=== PATIENT | male | born 1990 ===

== ENCOUNTER → 2019-09-03 | Outpatient (CLI) | payer OTHER ==
[~2019-09-03] MED LIST: MULT-245 PO; OMEG1CAP27 PO
--- NOTE | 2019-09-03 09:38 | PAIN ---
DATE OF SERVICE: 09/03/2019 INITIAL CONSULTATION FOR PAIN CLINIC CHIEF COMPLAINT: Low back and right lower extremity pain. HISTORY OF PRESENT ILLNESS: This is a 29-year-old male who presents with history of pain in the low back, right lower extremity for about 10 years, status post injury while doing physical training in [employer] duty [employer]. The patient reports the pain has been on and off over the years, but never gone, radiating to posterior gluteus, posterior right leg, posterior thigh, posterior calf and with tingling and numbness in the right calf, especially into the foot and the lateral toes, but not as much in the great toe. The patient reports weakness in the right compared to the left, especially with any activities, even walking for more than about 10 minutes. The patient reports no loss of motor function, but significant fatigability with the right leg, aching in the right thigh anteriorly as well. The patient reports changes during the day, worse with activity, standing, walking, changing positions with tingling and numbness radiating to the right leg, aching in quality in the back as well. The patient reports it awakens him from sleep at least once or twice a night. It does not affect his bowel or bladder control, can affect his ability to walk, but only for extended distances greater than 10-20 minutes of walking. The patient has had previous epidural injections in 2016 with good results; trigger point injections; physical therapy with mild results at that time. this was back in 2009 and 2018; chiropractic treatment in 2013; and exercises he is currently doing on his own as well as stretching. The patient had taken Neurontin, which was not significantly helpful. He gets [id number] Tylenol he can take as well, which does help, but only about 10%. The patient rates his disability rating 0-10, 10 being the worst, is a 3 with recreation, 2 with social activity, 4 with occupational activities, 1 with self-care activities and 5 with life support activities, especially sleeping. The patient did have MRI scan dated 11/05/2016 showing disk extrusion at L5-S1 with neural effacement and right paracentral disk extrusion extending posteriorly to the upper portion of the S1 vertebral segment with some mild disk desiccation at L3-4 as well. PAST MEDICAL HISTORY: Significant for elevated liver enzymes and ringing in the ears. PREVIOUS SURGERIES: Include ear tubes at age 5 and wisdom teeth extraction and LASIK procedure in 2010. CURRENT MEDICATIONS: Include only [id number] Tylenol currently. ALLERGIES: The patient has no known drug allergies. FAMILY HISTORY: Significant for cancers. SOCIAL HISTORY: The patient does not drink alcohol, does not smoke, does not use any illegal, illicit or recreational drugs. Single. He is ex-, in custody currently at [place], [place]. REVIEW OF SYSTEMS: The patient's review of systems is positive for those items mentioned in history of present illness. All systems reviewed and otherwise negative. It is complete, full and well documented on the patient's chart. PHYSICAL EXAMINATION: VITAL SIGNS: The patient's blood pressure is 147/97, pulse 79, respirations 16, temperature 98.3 degrees Fahrenheit, height is 5 feet 10 inches, and weight is 212 pounds. GENERAL: The patient is awake, alert, oriented, appropriate, very pleasant demeanor. HEENT: Shows normocephalic, atraumatic. Extraocular movements are intact and symmetrical. Oral cavity shows mucous membranes moist and pink. Dentition is intact. NECK: Shows anterior throat supple without palpable lymphadenopathy noted. Swallow reflex symmetrical. CHEST: Shows normal on inspection. Breath sounds are clear to auscultation bilaterally. HEART: Shows S1, S2 clear. No murmurs auscultated. ABDOMEN: Soft, nontender, nondistended. No palpable organomegaly is noted. No rebound or guarding demonstrated. BACK: Shows spine grossly in the midline. Normal-appearing thoracic kyphosis and some slight flattening of lumbar lordotic curvature. Lumbar paraspinous muscle shows symmetrical on inspection, on palpation shows some moderate tenderness diffusely, but only very diffusely in the low lumbar distribution. Good rotational motion both laterally greater than 10 degrees right and left as well as extension greater than 10 degrees, forward flexion 45 degrees without increase in pain, no tenderness over the spinous processes, sacrum or sacroiliac regions with palpation. EXTREMITIES: The patient's lower extremities show deep tendon reflexes at 2+ in the patellar, 1+ tendo-calcaneus tendons. Motor exam is approximately 4 on a scale of 5 in the right ankle, but 5/5 with right quadriceps and hamstring flexion. Left side is 5/5 throughout. Peripheral pulses are 1+ posterior tibia. No peripheral edema is noted bilaterally. Straight leg raise noted to be positive on the right about 45 degrees, decreased with knee flexion, left side is negative. Gaenslen's and Hay maneuvers are negative bilaterally as well. The patient is able to stand, stand on his toes without significant difficulty or loss of balance. The patient's gait is not well evaluated as the patient is in ankle restraints. The patient is not using any assistive devices, however, such as canes or walkers to ambulate. SKIN: Shows warm and dry, good turgor. No edema. No sores, rashes, or bruising throughout. IMPRESSION: 1. This is a 29-year-old male with long year, 10-year history of low back and right lower extremity pain in a radicular fashion following L5-S1 dermatomal distribution. 2. MRI scan of lumbar spine as noted. 3. History of tinnitus. 4. Elevated liver enzymes. PLAN: Options were discussed with the patient including conservative medical managements, continued physical therapies, interventional techniques. He has done very well with interventional techniques in the past. He would like to pursue this again. We discussed a lumbar epidural steroid injection using description as well as anatomical models to describe the procedure. The patient is interested in pursuing this. Await for preauthorization with his insurance provider. Once this is obtained, we will have him return for lumbar epidural steroid injection, translaminar approach L5-S1 level at that time. KAREN EARL MD DR: VINNIE/mahsa JOB#: [id number] / [id number]
== END | disposition home or self-care (01) ==
LOC: PNCL 07:55 → EEVIPCON 08:00
PROVIDERS: ATTEND Anesthesiology
DX: Z04.2 Encounter for examination and observation following work accident (principal); M54.5 Low back pain; M79.661 Pain in right lower leg; R94.5 Abnormal results of liver function studies; Z86.69 Personal history of other diseases of the nervous system and sense organs
CPT/HCPCS: G0463

== ENCOUNTER → 2019-10-16 | Outpatient (CLI) | payer OTHER ==
[~2019-10-16] MED LIST changes: +IOHEXOL 180 MG/ML 10 ML VIAL. ONE; +methylPREDNISolone ACETATE 40 MG/ML VIAL. ONE; +methylPREDNISolone ACETATE 80 MG/ML VIAL. ONE
--- NOTE | 2019-10-16 08:15 | PDOC ---
Progress Note - Pain Clinic Date of Service: DOS: DATE: 10/16/19 TIME: 08:12 Diagnosis: Dx: Lumbar radiculopathy with lumbar degenerative disease and lumbar herniated disc History or Present Illness: HPI: 29-year-old male returns follow-up status post initial evaluation and preauthorization for lumbar epidural steroid injection. Patient is obtained that now would like to proceed reports of pain low back right lower extremity as was previously posterior gluteus posterior thigh posterior calf on the right side. Patient points to 7 on scale 10 is worse over the past week for an average and a 2 is least. Patient reports is a 2 today as well. Patient ports aching the upper legs sharp in the back and radiating shooting into the toes and the calf on the right side as becoming more constant with activity walking standing changing positions better with sitting or laying down but has been waking from sleep every hour or so over the past 2 weeks or so. Patient reports no new motor or sensory deficits no new bowel or bladder incontinence or other complaints. Physical Exam: VS: Blood pressure is 135/91 pulse 75 respirations 16 temperature is 90.0 F weight is 211 pounds PE: PHYSICAL EXAMINATION: GENERAL: The patient is awake, alert, oriented, appropriate, very pleasant demeanor HEENT: Shows normocephalic, atraumatic. Extraocular movements are intact and symmetrical. Oral cavity: Mucous membranes moist and pink. NECK: Shows anterior throat supple without palpable lymphadenopathy noted. Swallow reflex symmetrical. CHEST: Shows normal on inspection. Breath sounds are clear bilaterally. HEART: Shows S1, S2 clear. No murmurs auscultated. ABDOMEN: Soft, nontender, nondistended. No palpable organomegaly is noted. No rebound or guarding demonstrated. BACK: Shows spine grossly in the midline. Normal-appearing cervical lordotic curvature. There is slightly increased thoracic kyphosis, some minor flattening of the lumbar lordotic curvature. Lumbar paraspinous muscles show symmetrical on inspection, on palpation shows some moderate tenderness diffusely throughout the upper, middle and lower distribution of the paraspinous muscles bilaterally without specific trigger points, without radiation of pain. The patient has good rotational motion of the lumbar spine, both laterally as well as extension and flexion without significant difficulty. No tenderness over the spinous processes, sacrum or sacroiliac regions. EXTREMITIES: Lower extremities show deep tendon reflexes 2+ in the patellar and tendo calcaneus tendons. Motor exam is 4 on a scale of 5 with right dorsiflexion, extension, quadriceps and hamstring flexion and 5/5 on the left. Peripheral pulses are 1+ posterior tibial. No peripheral edema is noted bilaterally. Lower extremities are warm and dry to touch, equal in color and appearance. SKIN: Shows warm and dry, good turgor. No edema. No sores, rashes or bruising throughout. Procedure: Procedure: Options were discussed with the patient. Patient's old chart was reviewed his his current medication regimen updated current review of systems updated today as well. We will proceed with a lumbar epidural straight injection today with fluoroscopic guidance risks were again discussed including but not limited to bleeding infection possibility of epidural hematoma subsequent neurological compromise dural puncture headache spinal cord and or nerve damage side effects of steroid medication and portals chronic pain control. Patient understands wished to proceed. Patient return to clinic in approximate 2 weeks for follow- up was counseled as to return appointment activity level and side effects be aware of. Medication Injected: Med Injected: Procedure is lumbar epidural steroid injection under local anesthetic using sterile prep and drape at the L5-S1 level using C-arm fluoroscopic guidance in both AP and lateral views medications injected is 120 mg Depo-Medrol + 10 mL preservative-free normal saline and 2 mL contrast- condition at discharge is stable patient tolerated procedure well had no complications. Condition at Discharge: Condition at Discharge: Condition at discharge is stable patient tolerated the procedure well had no complications. KAREN EARL MD Oct 16, 2019 08:15
== END | disposition home or self-care (01) ==
LOC: PNCL 07:36
PROVIDERS: ATTEND Anesthesiology
DX: M51.16 Intervertebral disc disorders with radiculopathy, lumbar region (principal); Z79.899 Other long term (current) drug therapy
CPT/HCPCS: 62323; J1030; J1040; Q9965

== ENCOUNTER → 2020-01-05 | Outpatient (CLI) | payer OTHER ==
[~2020-01-05] MED LIST changes: -IOHEXOL 180 MG/ML 10 ML VIAL. ONE
--- NOTE | 2020-01-05 08:34 | PDOC ---
Progress Note - Pain Clinic Date of Service: DOS: DATE: 01/05/20 TIME: 08:31 Diagnosis: Dx: Lumbar radiculopathy with lumbar degenerative disease and lumbar herniated disc History or Present Illness: HPI: 29-year-old male returns follow-up status post lumbar epidural steroid action x1. Patient reports only about 20% improvement after first injection but still significant pain in the low back and right lower extremity radiating the posterior gluteus posterior thigh posterior calf. Patient reports he also had an injury working out a few days ago with his upper extremities and right shoulder with some pain that radiates in the base the neck into the right upper extremity mostly in the posterior aspect of the triceps and the shoulder itself. Patient rates the pain in his back is a 7 on scale 10 is worse over the past week 6 on average 5 its least is a 6 today. Patient scribes is radiating constant aching worse with walking standing changing positions for the first few days he was doing better with work activities household activities traveling with greater ease but has been waking her from sleep again about every 2 hours or so. Patient's right shoulder and upper extremities show some significant tenderness as well. Patient reports no loss of motor function no bowel or blad amy incontinence Physical Exam: VS: Blood pressure is 162/91 pulse 78 respirations 18 temperature is 90.1 F height is 5 feet 10 inches weight is 201 pounds PE: PHYSICAL EXAMINATION: GENERAL: The patient is awake, alert, oriented, appropriate, very pleasant demeanor HEENT: Shows normocephalic, atraumatic. Extraocular movements are intact and symmetrical. Oral cavity: Mucous membranes moist and pink. Dentition is intact. NECK: Shows anterior throat supple without palpable lymphadenopathy noted. Swallow reflex symmetrical. CHEST: Shows normal on inspection. Breath sounds are clear bilaterally, no rales rhonchi or wheezes. HEART: Shows S1, S2 clear. No murmurs auscultated. ABDOMEN: Soft, nontender, nondistended. No palpable organomegaly is noted. No rebound or guarding demonstrated. BACK: Shows spine grossly in the midline. Normal-appearing cervical lordotic curvature. There is slightly increased thoracic kyphosis, some minor flattening of the lumbar lordotic curvature. Lumbar paraspinous muscles show symmetrical on inspection, on palpation shows some moderate tenderness diffusely throughout the upper, middle and lower distribution of the paraspinous muscles, but without specific trigger points, without radiation of pain. The patient has good rotational motion of the lumbar spine, both laterally as well as extension and flexion without significant difficulty. No tenderness over the spinous processes, sacrum or sacroiliac regions. EXTREMITIES: Lower extremities show deep tendon reflexes 2+ in the patellar and tendo calcaneus tendons. Motor exam is 4 on a scale of 5 with right dorsiflexion, extension, quadriceps and hamstring flexion and 5/5 on the left. Peripheral pulses are 1+ posterior tibial. No peripheral edema is noted bilaterally. Lower extremities are warm and dry to touch, equal in color and appearance. SKIN: Shows warm and dry, good turgor. No edema. No sores, rashes or bruising throughout. Procedure: Procedure: Options were discussed with the patient. Patient chart reviewed his his current medication regimen updated current review of systems updated today as well. We will proceed with a second in the series lumbar epidural steroid injection today with fluoroscopic guidance. Risks were discussed including but not limited to: Bleeding, infection, possibility of epidural hematoma and subsequent neurological compromise, dural puncture, headaches, spinal cord and/or nerve damage, side effects of steroid medication, and poor results regarding pain control. Patient understands wished to proceed. Patient will return to the clinic in possibly 2 weeks for follow-up was counseled as to return appointment activity level and side effects to be aware of. We will also order cervical spine MRI scan as patient having some radicular symptoms in the right upper extremity and recommend Motrin 800 mg 3 times daily. Medication Injected: Med Injected: Procedure is lumbar epidural steroid injection under local anesthetic using sterile prep and drape at the L5-S1 level using C-arm fluoroscopic guidance in both AP and lateral views medications injected is 120 mg Depo-Medrol + 10 mL preservative-free normal saline and 2 mL contrast- condition at discharge is stable patient tolerated procedure well had no complications. Condition at Discharge: Condition at Discharge: Condition at discharge is stable, patient tolerated the procedure well and had no complications. KAREN EARL MD Jan 05, 2020 08:34
== END | disposition home or self-care (01) ==
LOC: PNCL 07:33
PROVIDERS: ATTEND Anesthesiology
DX: M51.16 Intervertebral disc disorders with radiculopathy, lumbar region (principal); Z79.899 Other long term (current) drug therapy
CPT/HCPCS: 62323; J1030; J1040

== ENCOUNTER → 2020-03-29 | Outpatient (CLI) | payer OTHER ==
[~2020-03-29] MED LIST changes: +IOHEXOL 180 MG/ML 10 ML VIAL. ONE
--- NOTE | 2020-03-29 08:22 | PDOC4 ---
PROCEDURE Procedure Patient was consented for lumbar epidural steroid injection. Risks were dis cussed including but not limited to: Bleeding, infection, possibility of epidural hematoma and subsequent neurological compromise, dural puncture, headaches, spinal cord and/or nerve damage, side effects of steroid medication, and poor results regarding pain control. Patient understands and wished to proceed. Procedure is lumbar epidural steroid injection under local anesthetic using sterile prep and drape at the L5-S1 level using C-arm fluoroscopic guidance in both AP and lateral views medications injected is 120 mg Depo-Medrol + 10 mL preservative-free normal saline and 2 mL contrast- condition at discharge is stable patient tolerated procedure well had no complications. KAREN EARL MD Mar 29, 2020 08:22
--- NOTE | 2020-03-29 08:22 | PDOC ---
Progress Note - Pain Clinic Date of Service: DOS: DATE: 03/29/20 TIME: 08:19 Diagnosis: Dx: Lumbar radiculopathy with lumbar degenerative disc disease and lumbar herniated disc History or Present Illness: HPI: 30-year-old male returns follow-up status post lumbar epidural steroid injection x2 most recently seen January 05, 2020. Patient did very well with about 60% improvement overall after the last injection patient reports has been returning over the past week or so increasing pain in the low back and the right lower ex tremity posterior gluteus posterior thigh posterior calf with some tingling in the leg as well and mostly in the calf and ankle patient reports is worse with walking standing changing positions also present with sitting for more than about 30 minutes patient reports generally is not awakening from sleep at night if he cannot sleep on his left side if he is on his right side it may wake him every 4-5 hours patient reports the pain is aching and sharp tingling in the leg radiating in the leg constant in the back rated as a 7 on scale 10 is worse over the past week 6 on average for its least is a 6 today. Patient reports no new motor or sensory deficits no bowel or bladder incontinence. Physical Exam: VS: Blood pressure is 142/91 pulse 84 respirations 18 temperature 97.6 F height is 5 feet 10 inches weight 208 pounds PE: PHYSICAL EXAMINATION: GENERAL: The patient is awake, alert, oriented, appropriate, very pleasant demeanor HEENT: Shows normocephalic, atraumatic. Extraocular movements are intact and symmetrical. Oral cavity: Mucous membranes moist and pink. NECK: Shows anterior throat supple without palpable lymphadenopathy noted. Swallow reflex symmetrical. CHEST: Shows normal on inspection. Breath sounds are clear bilaterally, no rales or rhonchi. HEART: Shows S1, S2 clear. No murmurs auscultated. ABDOMEN: Soft, nontender, nondistended. No palpable organomegaly is noted. No rebound or guarding demonstrated. BACK: Shows spine grossly in the midline. Normal-appearing cervical lordotic curvature. There is slightly increased thoracic kyphosis, some minor flattening of the lumbar lordotic curvature. Lumbar paraspinous muscles show symmetrical on inspection, on palpation shows some moderate tenderness diffusely throughout the upper, middle and lower distribution of the paraspinous muscles without specific trigger points, without radiation of pain. The patient has good rotational motion of the lumbar spine, both laterally as well as extension and flexion without significant difficulty. EXTREMITIES: Lower extremities show deep tendon reflexes 2+ in the patellar and tendo calcaneus tendons. Motor exam is 4 on a scale of 5 with right dorsiflexion, extension, quadriceps and hamstring flexion and 5/5 on the left. Peripheral pulses are 1+ posterior tibial. No peripheral edema is noted bilaterally. Lower extremities are warm and dry to touch, equal in color and appearance. SKIN: Shows warm and dry, good turgor. No edema. No sores, rashes or bruising throughout. Procedure: Procedure: Options were discussed with the patient. Patient chart reviews his current medication regimen updated current review of systems updated today as well. We will proceed with a third in the series lumbar epidural steroid injection today with fluoroscopic guidance. Risks were discussed including but not limited to: Bleeding, infection, possibility of epidural hematoma and subsequent neurological compromise, dural puncture, headaches, spinal cord and/or nerve damage, side effects of steroid medication, and poor results regarding pain control. Patient understands and wished to proceed. Patient return to clinic in approximate 2 is for follow-up, was counseled return to home activity level, and side effects to be aware of. Medication Injected: Med Injected: Procedure is lumbar epidural steroid injection under local anesthetic using sterile prep and drape at the L5-S1 level using C-arm fluoroscopic guidance in both AP and lateral views medications injected is 120 mg Depo-Medrol + 10 mL preservative-free normal saline and 2 mL contrast- condition at discharge is stable patient tolerated procedure well had no complications. Condition at Discharge: Condition at Discharge: Condition at discharge stable, patient tolerated procedure well and had no complications. KAREN EARL MD Mar 29, 2020 08:22
== END | disposition home or self-care (01) ==
LOC: PNCL 07:51
PROVIDERS: ATTEND Anesthesiology
DX: M51.16 Intervertebral disc disorders with radiculopathy, lumbar region (principal); Z79.899 Other long term (current) drug therapy
CPT/HCPCS: 62323; J1030; J1040; Q9965

== ENCOUNTER → 2020-08-02 | Outpatient (CLI) | payer OTHER ==
--- NOTE | 2020-08-02 08:21 | PDOC ---
Progress Note - Pain Clinic Date of Service: DOS: DATE: 08/02/20 TIME: 08:18 Diagnosis: Dx: Lumbar radiculopathy with lumbar degenerative disc disease and lumbar herniated disc History or Present Illness: HPI: 30-year-old male returns for follow-up status post lumbar epidural steroid injections most recently March 29, 2020. Patient reports he did much better after last injection about 70% improvement pain returning down his low back and right lower extremity for about the past 2 months patient reports is getting worse since he been back to work weeks on his feet most of the day with pain rating the posterior gluteus on the right side posterior thigh posterior calf and lateral calf patient reports aching tingling can be radiating constant with weightbearing patient reports is better with sitting lying down wakes him sleep about once a night but is able to get back to sleep and repositioning. Patient reports its radiating down the right leg numbness outside the right calf and tingling and numbness on the outside lateral toes on the right foot as well patient reports no motor loss no bowel or bladder incontinence rates his pain is a 7 on scale 10 is worse over the past week 5 on average for its least is a 5 today. Physical Exam: VS: Blood pressure is 148/89 pulse 78 respirations 18 temperature 98.1 F 10 inches weight 208 pounds PE: PHYSICAL EXAMINATION: GENERAL: The patient is awake, alert, oriented, appropriate, very pleasant in demeanor, patient in custody HEENT: Shows normocephalic, atraumatic. Extraocular movements are intact and symmetrical. Oral cavity: Mucous membranes moist and pink. Dentition is intact. NECK: Shows anterior throat supple without palpable lymphadenopathy noted. Swallow reflex symmetrical. CHEST: Shows normal on inspection. Breath sounds are clear bilaterally no rales or rhonchi. HEART: Shows S1, S2 clear. No murmurs auscultated. ABDOMEN: Soft, nontender, nondistended. No palpable organomegaly is noted. No rebound or guarding demonstrated. BACK: Shows spine grossly in the midline. Normal-appearing cervical lordotic curvature. There is slightly increased thoracic kyphosis, some minor flattening of the lumbar lordotic curvature. Lumbar paraspinous muscles show symmetrical on inspection, on palpation shows some moderate tenderness diffusely throughout the upper, middle and lower distribution of the paraspinous muscles without specific trigger points, without radiation of pain. The patient has good rotational motion of the lumbar spine, both laterally as well as extension and flexion without significant difficulty. EXTREMITIES: Lower extremities show deep tendon reflexes 2+ in the patellar and tendo calcaneus tendons. Motor exam is 4 on a scale of 5 with right dorsiflexion, extension, quadriceps and hamstring flexion and 5/5 on the left. Peripheral pulses are 1+ posterior tibial. No peripheral edema is noted bilaterally. Lower extremities are warm and dry. SKIN: Shows warm and dry, good turgor. No edema. No sores, rashes or bruising throughout. Procedure: Procedure: Options were discussed with the patient. Patient chart reviews his current medication regimen updated current review of systems updated today as well. We will proceed with a first in the series lumbar epidural steroid injection stable fluoroscopic guidance. Risks were discussed including but not limited to: Bleeding, infection, possibility of epidural hematoma and subsequent neurological compromise, dural puncture, headaches, spinal cord and/or nerve damage, side effects of steroid medication, and poor results regarding pain control. Patient understands and wished to proceed. Patient will return to the clinic in approximately 2 weeks for follow-up, was counseled as to return appoi ntment, activity level, and side effects to be aware of. Medication Injected: Med Injected: Procedure is lumbar epidural steroid injection under local anesthetic using sterile prep and drape at the L5-S1 level using C-arm fluoroscopic guidance in both AP and lateral views medications injected is 120 mg Depo-Medrol +10mL preservative-free normal saline and 2 mL contrast- condition at discharge is stable patient tolerated procedure well had no complications. Condition at Discharge: Condition at Discharge: Condition at discharge stable, patient alert the procedure well and had no complications. KAREN EARL MD Aug 02, 2020 08:21
--- NOTE | 2020-08-02 08:21 | PDOC4 ---
PROCEDURE Procedure Patient was consented for lumbar epidural steroid injection. Risks were dis cussed including but not limited to: Bleeding, infection, possibility of epidural hematoma and subsequent neurological compromise, dural puncture, headaches, spinal cord and/or nerve damage, side effects of steroid medication, and poor results regarding pain control. Patient understands and wished to proceed. Procedure is lumbar epidural steroid injection under local anesthetic using sterile prep and drape at the L5 S1 level using C-arm fluoroscopic guidance in both AP and lateral views medications injected is 120 mg Depo-Medrol +10mL preservative-free normal saline and 2 mL contrast- condition at discharge is stable patient tolerated procedure well had no complications. KAREN EARL MD Aug 02, 2020 08:21
== END | disposition home or self-care (01) ==
LOC: PNCL 07:44
PROVIDERS: ATTEND Anesthesiology
DX: M51.16 Intervertebral disc disorders with radiculopathy, lumbar region (principal); Z79.899 Other long term (current) drug therapy
CPT/HCPCS: 62323; J1030; J1040; Q9965

== ENCOUNTER → 2020-10-07 | Outpatient (CLI) | payer OTHER ==
[~2020-10-07] MED LIST changes: -methylPREDNISolone ACETATE 40 MG/ML VIAL. ONE
--- NOTE | 2020-10-07 08:28 | PDOC ---
Progress Note - Pain Clinic Date of Service: DOS: DATE: 10/07/20 TIME: 08:25 Diagnosis: Dx: Lumbar radiculopathy with lumbar degenerative disc disease and lumbar herniated disc History or Present Illness: HPI: 30-year-old male returns for follow-up status post lumbar epidural steroid injection x1. Patient reports about 70% improvement after last injection was in August 02, 2020. Patient reports he was increase his activity doing work activities household activities sleeping more comfortably travel with greater ease and comfort patient reports that the pain is returning in the low back and into the right lower extremity with some pain which is new on the left side but mostly still on the right patient reports his left leg is having some pain in the lateral aspect and feels "deep" in the thigh itself patient reports also a deep pain on the right side radiating into the lateral calf into the lateral si de of the foot with tingling and numbness in the foot patient reports outside the lateral 2 toes also very tingling and numb patient reports the pain is tingling burning dull tight in the back shooting radiating worse with walking standing better with sitting or lying down wakes him from sleep of least once or twice a night however patient reports no bowel or bladder incontinence rates his pain is a 6 on scale 10 is worse over the past week 5 on average 3 at its least and is a 5 today Physical Exam: VS: Blood pressure is 140/92 pulse 81 respirations 16 temperature 98.6 F height is 510 inches weight is 210 pounds PE: PHYSICAL EXAMINATION: GENERAL: The patient is awake, alert, oriented, appropriate, very pleasant in demeanor, patient in custody. HEENT: Shows normocephalic, atraumatic. Extraocular movements are intact and symmetrical. Oral cavity: Mucous membranes moist and pink. Dentition is intact. NECK: Shows anterior throat supple without palpable lymphadenopathy noted. Swallow reflex symmetrical. CHEST: Shows normal on inspection. Breath sounds are clear bilaterally, no rales rhonchi wheezes auscultated. HEART: Shows S1, S2 clear. No murmurs auscultated. ABDOMEN: Soft, nontender, nondistended. No palpable organomegaly is noted. BACK: Shows spine grossly in the midline. Normal-appearing cervical lordotic curvature. There is slightly increased thoracic kyphosis, some minor flattening of the lumbar lordotic curvature. Lumbar paraspinous muscles show symmetrical on inspection, on palpation shows some moderate tenderness diffusely throughout the upper, middle and lower distribution of the paraspinous muscles, but without specific trigger points, without radiation of pain. The patient has good rotational motion of the lumbar spine, both laterally as well as extension and flexion without significant difficulty. EXTREMITIES: Lower extremities show deep tendon reflexes 2+ in the patellar and tendo calcaneus tendons. Motor exam is 4 on a scale of 5 with right dorsiflexion, extension, quadriceps and hamstring flexion and 5/5 on the left. Peripheral pulses are 1+ posterior tibial. No peripheral edema is noted bilaterally. Lower extremities are warm and dry to touch, equal in color and appearance. SKIN: Shows warm and dry, good turgor. No edema. No sores, rashes or bruising throughout. Procedure: Procedure: Options discussed with patient. Patient's old chart was reviewed his current medication regimen updated current review of systems updated today as well. We will proceed with a lumbar epidural steroid injection today with fluoroscopic guidance. Risks were discussed including but not limited to: Bleeding, infection, possibility of epidural hematoma and subsequent neurological compromise, dural puncture, headaches, spinal cord and/or nerve damage, side effects of steroid medication, and poor results regarding pain control. Patient understands and wished to proceed. Return to clinic in approximate 2 weeks for follow-up, was counseled as to return appointment active level, and side effects to be aware of. Medication Injected: Med Injected: Procedure is lumbar epidural steroid injection under local anesthetic using sterile prep and drape at the L5 S1 level using C-arm fluoroscopic guidance in both AP and lateral views medications injected is 120 mg Depo-Medrol +10mL preservative-free normal saline and 2 mL contrast- condition at discharge is stable patient tolerated procedure well had no complications. Condition at Discharge: Condition at Discharge: Condition at discharge is stable, patient tolerated the procedure well and had no complications. KAREN EARL MD Oct 07, 2020 08:28
--- NOTE | 2020-10-07 08:28 | PDOC4 ---
Procedure Note: ICD 10 Code: ICD 10 Code: M54.17 M51.36 M51.26 Procedure Note: Patient was consented for lumbar epidural steroid injection with fluoroscopic guidance. Risks were discussed including but not limited to: Bleeding, infection, possibility of epidural hematoma and subsequent neurological compromise, dural puncture, headaches, spinal cord and/or nerve damage, side effects of steroid medication, and poor results regarding pain control. Patient understands and wished to proceed. Procedure is lumbar epidural steroid injection under local anesthetic using ster ile prep and drape at the L5-S1 level using C-arm fluoroscopic guidance in both AP and lateral views medications injected is 120 mg Depo-Medrol +10mL preservative-free normal saline and 2 mL contrast- condition at discharge is stable patient tolerated procedure well had no complications. KAREN EARL MD Oct 07, 2020 08:28
== END | disposition home or self-care (01) ==
LOC: PNCL 07:58
PROVIDERS: ATTEND Anesthesiology
DX: M51.16 Intervertebral disc disorders with radiculopathy, lumbar region (principal); Z79.899 Other long term (current) drug therapy
CPT/HCPCS: 62323; J1040; Q9965

== ENCOUNTER → 2021-01-11 | Day surgery (SDC) | payer OTHER ==
[~2021-01-11] VITALS: Ht 177.8 cm; Wt 93.1 kg
[~2021-01-11] MED LIST changes: -IOHEXOL 180 MG/ML 10 ML VIAL. ONE; +LIDOCAINE 2% PF 5 ML VIAL. ONE; +PROPOFOL 10 MG/ML (20ML) VIAL. IV ONE; -methylPREDNISolone ACETATE 80 MG/ML VIAL. ONE
[2021-01-11 06:55] VITALS: BP 196/86
[2021-01-11 08:17] VITALS: BP 138/78
--- NOTE | 2021-01-11 09:19 | CONS ---
DATE OF CONSULTATION: 01/11/2021 UPDATED HISTORY AND PHYSICAL REFERRING PHYSICIAN: . REASON: Rectal bleeding. HISTORY OF PRESENT ILLNESS: A 30-year-old male whose past medical history significant for hepatitis seen for painless rectal bleeding, previously had a hemorrhoidectomy and now continues to have blood loss. No family history of colon cancer is encountered. There is no diarrhea or constipation. With continued issues, requests additional evaluation. PAST MEDICAL HISTORY: Rectal bleeding. Osteoarthrosis. ALLERGIES: None. MEDICATIONS: Multivitamin, omega 3. FAMILY AND SOCIAL HISTORY: Significant for esophageal cancer in grandfather, diabetes in the grandfather. He is a former drinker, nonsmoker. PAST SURGICAL HISTORY: Eye surgery, tonsillectomy, hemorrhoidectomy. REVIEW OF SYSTEMS: Per records. PHYSICAL EXAMINATION: GENERAL: Reveals a well-nourished, well-developed white male in no acute distress. VITAL SIGNS: Temperature 97.6, pulse 102, respiratory rate 14. LUNGS: Clear. CARDIOVASCULAR: Reveals an S1, S2, without S3, S4 or appreciable murmur. ABDOMEN: Reveals a soft abdomen, normal bowel sounds, without appreciable hepatosplenomegaly. EXTREMITIES: Reveals no cyanosis, clubbing or edema. IMPRESSION: Rectal bleeding, etiology is to be determined. Differential includes inflammatory bowel disease, colon cancer, colon polyps, diverticulosis, AVM, fissures, hemorrhoids. Therefore, recommend colonoscopy. Risks and benefits of the procedure including risk of hemorrhage and perforation were discussed. The patient is willing to proceed at this time. CARLOS MANUEL DR: Marilyn TID: [id number]
--- NOTE | 2021-01-13 20:24 | PATHOLOGY ---
[facility] Accession Number: [id number] . 01 Material submitted: . rectum - RECTAL POLYP BIOPSY . 01 Clinical history: . RECTAL BLEEDING COLONOSCOPY . 02 Diagnosis: Large bowel "rectal polyp biopsy": - Polypoid fragment of large bowel mucosa with focal surface epithelial hyperplasia and a prominent intramucosal lymphoid aggregate. - Negative for dysplasia and malignancy. ([facility]; 01/13/2021) [facility] 01/13/2021 1939 Local . 02 Electronically signed: . Attila Gaston MD, Pathologist NPI- [id number] . 01 Gross description: . Received in formalin labeled "Hay Butterfield, rectal polyp biopsy" is a fragment of pope-brown soft tissue measuring 0.5 x 0.4 x 0.1 cm. The specimen is submitted entirely in A1. [place] [facility] [place] [facility] 01/12/2021 0851 Local . 02 Pathologist provided ICD-10: K92.1, Z12.11 . 02 CPT . 610861 Specimen Comment: A courtesy copy of this report has been sent to [phone] Specimen Comment: Report sent to Specimen Comment: A duplicate report has been generated due to demographic updates. Performed at: 01 [facility] [address], [place] [id number] MD Avery Perez MD Phone: [phone] Performed at: 02 [facility] [address] [id number] MD Paulino Finn MD Phone: [phone]
== END | disposition home or self-care (01) ==
LOC: ENDOS 06:41 → EEVIPCON 06:41
PROVIDERS: ATTEND Internal Medicine Gastroenterology
DX: K62.5 Hemorrhage of anus and rectum (principal); K64.2 Third degree hemorrhoids; K62.1 Rectal polyp; K63.89 Other specified diseases of intestine; K21.9 Gastro-esophageal reflux disease without esophagitis; M19.90 Unspecified osteoarthritis, unspecified site; Z80.0 Family history of malignant neoplasm of digestive organs; Z83.3 Family history of diabetes mellitus; Z79.899 Other long term (current) drug therapy; Z98.890 Other specified postprocedural states
CPT/HCPCS: 45380; J2704; 88305

== ENCOUNTER → 2021-05-09 | Outpatient (CLI) | payer OTHER ==
[2021-01-11 08:17] VITALS: BP 138/78
[~2021-05-09] MED LIST changes: +CHOL5000 PO; -LIDOCAINE 2% PF 5 ML VIAL. ONE; -PROPOFOL 10 MG/ML (20ML) VIAL. IV ONE
--- NOTE | 2021-05-09 08:27 | PDOC ---
Progress Note - Pain Clinic Date of Service: DOS: DATE: 05/09/21 TIME: 08:23 Diagnosis: Dx: Lumbar radiculopathy with lumbar degenerative disease lumbar herniated disc History or Present Illness: HPI: 31-year-old male returns for follow-up last seen October 07, 2020 patient had lumbar epidural steroid injection at that time with very good results about 70% improvement for the first few weeks and the pain began to return gradually over the next month or 2 in the low back radiating down to the right lower extremity posterior gluteus posterior thigh posterior calf lateral foot and sole of the foot on the right side patient reports no significant pain on the left side also pain across the low back patient reports is aching and tingling in the leg cramping shooting tight and dull in the back as well as leg radiating into the right thigh from the hip tingling with numbness in the outer calf and posterior calf as well as in the lateral toes on the right foot patient reports a 7 on scale 10 is worse over the past week 5 on average 4 at its least and is a 5 today patient reports is worse with walking standing change positions initially doing much better with doing distance walking doing household activities traveling with greater ease and doing work activities on his feet patient repor ts still exacerbated by standing walking changing positions better with sitting or laying down but has been awakening from sleep about once a night on average but not every night usually only if he lays on his right side. Patient continues doing stretching strengthening exercises which help with day-to-day pain, but not completely relieving the pain. Patient reports no bowel or bladder incontinence. Physical Exam: VS: Blood pressure is 161/101 pulse 79 respirations 18 temperature is 98.4 F height is 5 feet 10 inches weight is 211 pounds. PE: PHYSICAL EXAMINATION: GENERAL: The patient is awake, alert, oriented, appropriate, very pleasant in demeanor HEENT: Shows normocephalic, atraumatic. Extraocular movements are intact and symmetrical. Oral cavity: Mucous membranes moist and pink. Dentition is intact. NECK: Shows anterior throat supple without palpable lymphadenopathy noted. Swallow reflex symmetrical. CHEST: Shows normal on inspection. Breath sounds are clear bilaterally, distant but no rales rhonchi or wheezes auscultated. HEART: Shows S1, S2 clear. No murmurs auscultated. ABDOMEN: Soft, nontender, nondistended. No palpable organomegaly is noted. BACK: Shows spine grossly in the midline. Normal-appearing cervical lordotic curvature. There is mildly increased thoracic kyphosis, some flattening of the lumbar lordotic curvature. Lumbar paraspinous muscles show symmetrical on inspection, on palpation shows some moderate tenderness diffusely throughout the upper, middle and lower distribution of the paraspinous muscles without specific trigger points, without radiation of pain. The patient has good rotational motion of the lumbar spine, both laterally as well as extension and flexion without significant difficulty. No tenderness over the spinous processes, sacrum or sacroiliac regions. EXTREMITIES: Lower extremities show deep tendon reflexes 2+ in the patellar and tendo calcaneus tendons. Motor exam is 4 on a scale of 5 with right dorsiflexion, extension, quadriceps and hamstring flexion and 5/5 on the left. Peripheral pulses are 1+ posterior tibial. No peripheral edema is noted bilaterally. Lower extremities are warm and dry. SKIN: Shows warm and dry, good turgor. No edema. No sores, rashes or bruising throughout. Procedure: Procedure: Options discussed with patient. Patient's old chart was reviewed his current medication regimen updated current review of systems updated today as well. We will preauthorize patient for lumbar epidural steroid injection as he did very well with the last injection pain returning now in a radicular fashion in an L5- S1 dermatomal distribution on the right. Patient will continue to doing stretching strength exercises as currently as well as oral analgesics as necessary. Once approved we will have patient return for translaminar approach L5-S1 lumbar epidural steroid injection with fluoroscopic guidance. Medication Injected: Med Injected: None Condition at Discharge: Condition at Discharge: Condition at discharge is stable. KAREN EARL MD May 09, 2021 08:27
== END | disposition home or self-care (01) ==
LOC: EEVIPCON 04-10 08:00 → PNCL 07:47
PROVIDERS: ATTEND Anesthesiology
DX: M51.16 Intervertebral disc disorders with radiculopathy, lumbar region (principal); K21.9 Gastro-esophageal reflux disease without esophagitis; Z79.899 Other long term (current) drug therapy
CPT/HCPCS: 99212; G0463